=== PATIENT | male | born 1930 | race Caucasian/White ===

== ENCOUNTER 2016-12-07 13:56 | Outpatient (CLI) | payer MEDICARE, OTHER | END 2016-12-07 13:57 | disposition home or self-care (01) | DX: M16.0 Bilateral primary osteoarthritis of hip (principal) ==

== ENCOUNTER 2017-02-22 07:02 | Outpatient (CLI) | payer MEDICARE, OTHER ==
--- NOTE | 2017-02-22 16:38 | CT Report ---
CT HEAD WITHOUT CONTRAST: 02/22/2017 CLINICAL INDICATION: Dementia. TECHNIQUE: Axial CT images of the brain were obtained without intravenous contrast. In accordance with CT protocol optimization, one or more of the following dose reduction techniques w ere utilized for this exam: automated exposure control, adjustment of mA and/or KV based on patient size, or use of iterative reconstructive technique. COMPARISON: 07/12/2009 FINDINGS: The ventricles and sulci demonstrate moderate symmetric enlargement, compatible with atrop hy. The basilar cisterns are patent. Chronic ischemic changes are seen in the periventricular white matter structures. There is no evidence of acute hemorrhage, mass effect, or midline shift. The vi sualized orbital contents and paranasal sinuses are unremarkable. There is an old fracture of the ri t lateral occipital bone. No acute fracture is seen. IMPRESSION: ATROPHY AND CHRONIC ISCHEMIC CHANGES. NO EVIDENCE OF ACUTE HEMORRHAGE OR MASS EFFECT. JOB #: [id number] EXT JOB #:[id number]
== END 2017-02-22 07:03 | disposition home or self-care (01) ==
LOC: DI 07:02
PROVIDERS: ATTEND Internal Medicine
DX: F03.90 Unspecified dementia, unspecified severity, without behavioral disturbance, psychotic disturbance, mood disturbance, and anxiety (principal); R79.89 Other specified abnormal findings of blood chemistry; G31.9 Degenerative disease of nervous system, unspecified; I67.82 Cerebral ischemia
CPT/HCPCS: 36415; 70450; 84403

== ENCOUNTER 2017-02-22 07:38 | Outpatient (CLI) | payer MEDICARE, OTHER | END 2017-02-22 07:39 | disposition home or self-care (01) | LOC: LAB 07:38 | PROVIDERS: ATTEND Internal Medicine | DX: R79.89 Other specified abnormal findings of blood chemistry (principal) | CPT/HCPCS: 36415; 84403 ==

== ENCOUNTER 2017-07-01 14:03 | Outpatient (CLI) | payer MEDICARE, OTHER | END 2017-07-01 14:04 | disposition home or self-care (01) | LOC: SC 14:03 | PROVIDERS: ATTEND Internal Medicine Pulmonary Disease | DX: G47.10 Hypersomnia, unspecified (principal); G31.83 Neurocognitive disorder with Lewy bodies; F02.80 Dementia in other diseases classified elsewhere, unspecified severity, without behavioral disturbance, psychotic disturbance, mood disturbance, and anxiety; R06.83 Snoring | CPT/HCPCS: 99203; G0463; 99212 ==

== ENCOUNTER 2017-08-03 11:33 | Outpatient (CLI) | payer MEDICARE, OTHER ==
--- NOTE | 2017-08-03 14:07 | Ultrasound Report ---
EXAM: AORTIC DOPPLER ULTRASOUND EXAM DATE: 08/03/2017 12:54 PM. CLINICAL HISTORY: ABDOMINAL AORTIC ANEURYSM (AAA) WITHOUT RUPTURE. COMPARISON: None. TECHNIQUE: Real-time sonographic imaging of retroperitoneal vascular structures, including color-flow , Doppler flow and spectral analysis was performed by the putty maker. Multiple medical field representative static images were saved for review. FINDINGS: Aorta: Proximal 2.2 cm Mid 1.7 cm Distal 4.4 x 4.0 cm, previously 4.3 x 4.0 cm Internal soft plaque is visualized. Iliac Vessels: The visualized proximal common iliac arteries are normal in caliber. Right 1.1 cm Left 1.0 cm IMPRESSION: Abdominal aortic aneurysm. No appreciable change in size given differences in technique. [facility] Referring Provider Line: [phone] SITE ID: [id number]
== END 2017-08-03 11:34 | disposition home or self-care (01) ==
LOC: DI 11:33
PROVIDERS: ATTEND Physician Assistant Medical
DX: I71.4 Abdominal aortic aneurysm, without rupture (principal)
CPT/HCPCS: 93978

== ENCOUNTER 2017-09-03 19:29 | Outpatient (CLI) | payer MEDICARE, OTHER | END 2017-09-03 19:30 | disposition home or self-care (01) | LOC: SC 19:29 | PROVIDERS: ATTEND Internal Medicine Pulmonary Disease | DX: G47.33 Obstructive sleep apnea (adult) (pediatric) (principal); G47.61 Periodic limb movement disorder | CPT/HCPCS: 95810 ==

== ENCOUNTER 2017-10-15 14:47 | Outpatient (CLI) | payer MEDICARE, OTHER | END 2017-10-15 14:48 | disposition home or self-care (01) | LOC: SC 14:47 | PROVIDERS: ATTEND Nurse Practitioner Family | DX: G47.33 Obstructive sleep apnea (adult) (pediatric) (principal); G47.61 Periodic limb movement disorder | CPT/HCPCS: 99214; G0463; 99212 ==

== ENCOUNTER 2017-11-24 00:50 | Outpatient (CLI) | payer MEDICARE, OTHER | END 2017-11-24 00:51 | disposition EMS.NT | LOC: EMS 00:50 | PROVIDERS: ATTEND Surgery | DX: Z03.89 Encounter for observation for other suspected diseases and conditions ruled out (principal); W01.0XXA Fall on same level from slipping, tripping and stumbling without subsequent striking against object, initial encounter; Y92.009 Unspecified place in unspecified non-institutional (private) residence as the place of occurrence of the external cause ==

== ENCOUNTER 2018-01-04 11:12 | Emergency (ER) | payer MEDICARE, OTHER ==
[2018-01-04 12:10] LABS: BASOPHILS # (AUTO) 0.1 10^3/uL (0.0-0.1); BASOPHILS % (AUTO) 1.3 %; EOSINOPHILS # (AUTO) 0.3 10^3/uL (0.0-0.7); EOSINOPHILS % (AUTO) 5.1 %; HGB - HEMOGLOBIN 13.9 g/dL (14.0-18.0); LYMPHOCYTES # (AUTO) 1.3 10^3/uL (1.5-3.5); LYMPHOCYTES % (AUTO) 21.3 %; MEAN CORPUSCULAR HEMOGLOBIN 30.7 pg (27.0-31.0); MEAN CORPUSCULAR HGB CONC 33.3 g/dL (32.0-36.0); MEAN CORPUSCULAR VOLUME 92.1 fL (80.0-94.0); MEAN PLATELET VOLUME 7.9 fL (7.4-11.4); MONOCYTES # (AUTO) 0.5 10^3/uL (0.0-1.0); MONOCYTES % (AUTO) 7.8 %; NEUTROPHILS # (AUTO) 3.9 10^3/uL (1.5-6.6); NEUTROPHILS % (AUTO) 64.5 %; PLT - PLATELET COUNT 188 10^3/uL (130-450); RED BLOOD COUNT 4.52 10^6/uL (4.70-6.10); RED CELL DISTRIBUTION WIDTH 14.8 % (12.0-15.0)
[2018-01-04 12:26] LABS: ALBUMIN 3.8 g/dL (3.2-5.5); ALBUMIN/GLOBULIN RATIO 1.2 (1.0-2.2); CALCIUM 8.9 mg/dL (8.5-10.3); CREATININE 1.2 mg/dL (0.6-1.2)
--- NOTE | 2018-01-04 13:10 | ED Physician Documentation ---
PD HPI NVD - Stated complaint Stated Complaint: N/V/D - Chief complaint Chief Complaint: Abd Pain - History obtained from History obtained from: Patient, Family (mother) - History of Present Illness Timing - onset: How many weeks ago (6-8) Timing - duration: Weeks (6-8) Timing - details: Gradual onset Pain level max: 0 Pain level now: 0 Associated symptoms: No: Fever, Abdominal pain, Chest pain, Hematemesis, Melena , Hematochezia, Dysuria, Hematuria Improved by: Vomiting (states worse over the past few days.) Worsened by: Eating - Additonal information Additional information: States that he has vomiting and diarrhea for 6-8 weeks. Has appointment with PCP in 10 days. Has had diarrhea since stopping aricept 1 year ago. States decreased appetite and "can't keep anything down". No blood in stool. Review of Systems Ten Systems: 10 systems reviewed and negative Constitutional: denies: Fever, Chills Ears: denies: Ear pain Nose: denies: Rhinorrhea / runny nose, Congestion Cardiac: denies: Chest pain / pressure Respiratory: denies: Cough GI: denies: Nausea, Vomiting, Diarrhea : denies: Dysuria Skin: denies: Rash Musculoskeletal: denies: Neck pain, Back pain Neurologic: denies: Focal weakness, Numbness, Headache PD PAST MEDICAL HISTORY - Past Medical History Past Medical History: Yes Cardiovascular: Hypertension, Atrial fibrillation - Past Surgical History Past Surgical History: Yes - Present Medications Home Medications: Ambulatory Orders Medication Instructions Recorded Confirmed Betaxolol 0.25% Ophth Drops 1 drop DAILY 02/13/15 02/13/15 [Betoptic S 0.25% Ophth Drops] Hydrochlorothiazide 25 mg PO DAILY 02/13/15 02/13/15 Hydrocodone/Acetaminophen 1 each PO Q6H PRN #15 tablet 02/13/15 [Hydrocodon-Acetaminophen 5-325] Telmisartan [Micardis] 20 mg PO DAILY 02/13/15 02/13/15 Testosterone [Androgel] 5 gm PO DAILY 02/13/15 02/13/15 Ondansetron Odt [Zofran] 4 mg TL Q6H PRN #10 tablet 01/04/18 Promethazine [Phenergan] 25 mg PO Q6H PRN #10 tab 01/04/18 - Allergies Allergies/Adverse Reactions: Allergies Allergy/AdvReac Type Severity Reaction Status Date / Time No Known Drug Allergies Allergy Verified 01/04/18 11:18 - Social History Does the pt smoke?: No Smoking Status: Never smoker Does the pt drink ETOH?: Yes Does the pt have substance abuse?: No PD ED PE NORMAL - Vitals Vital signs reviewed: Yes - General General: Alert and oriented X 3, No acute distress, Well developed/nourished - HEENT HEENT: PERRL, Moist mucous membranes - Neck Neck: Supple, no meningeal sign - Cardiac Cardiac: Strong equal pulses, Other (irregular) - Respiratory Respiratory: Clear bilaterally - Abdomen Abdomen: Soft, Non tender, Non distended - Back Back: No CVA TTP, No spinal TTP - Derm Derm: Warm and dry - Extremities Extremities: No edema - Neuro Neuro: Alert and oriented X 3 - Psych Psych: Normal mood, Normal affect Results - Vitals Vitals: Vital Signs - 24 hr 01/04/18 01/04/18 11:15 16:30 Temperature 36.2 C L Heart Rate 92 74 Respiratory 16 16 Rate Blood Pressure 139/82 H 143/90 H O2 Saturation 98 97 Oxygen O2 Source Room air - Labs Labs: Laboratory Tests 01/04/18 01/04/18 12:07 12:07 WBC 6.0 RBC 4.52 L Hgb 13.9 L Hct 41.6 L MCV 92.1 MCH 30.7 MCHC 33.3 RDW 14.8 Plt Count 188 MPV 7.9 Neut # 3.9 Lymph # 1.3 L [place] # 0.5 Eos # 0.3 Baso # 0.1 Absolute Nucleated RBC 0.00 Nucleated RBC % 0.0 Sodium 139 Potassium 3.8 Chloride 107 Carbon Dioxide 24 Anion Gap 8.0 BUN 29 H Creatinine 1.2 Estimated GFR (MDRD) 57 L Glucose 107 H Calcium 8.9 Total Bilirubin 1.0 AST 22 ALT 14 Alkaline Phosphatase 38 L Total Protein 7.0 Albumin 3.8 Globulin 3.2 Albumin/Globulin Ratio 1.2 Lipase 29 - Rads (name of study) CT abd/pelvis Radiology: Prelim report reviewed, EMP read contemporaneously, See rad report ( No acute inflammatory or obstructive process identified to explain vomiting. 2. Cholelithiasis. 3. Colonic tendinosis without CT evidence for acute diverticulitis. 4. 1.0 x 0.7 cm nonobstructive left intrarenal calculus. 5. Infrarenal abdominal aortic aneurysm, maximum diameter 4.5 cm. 6. Trabeculated urinary bladder wall with multiple small diverticula. ) PD MEDICAL DECISION MAKING - ED course Complexity details: reviewed results, re-evaluated patient, considered differential, d/w patient, d/w family ED course: Patient is an 87-year-old male who presents to the department vomiting for the past several weeks. No acute findings on CT scan to explain his symptoms. No acute findings on laboratory testing. Tolerating p.o. without difficulty after Phenergan in the emergency department. Eating and drinking well. Abdomen is soft, nontender nondistended on serial exam. A abdominal aortic aneurysm is unchanged from prior. No evidence of dissection. We will continue supportive care and have him follow-up with his doctor. Patient did attempt to give a urine sample but missed the cup. He is not having any urinary symptoms and they will follow-up with his doctor if his symptoms do not improve. Patient and family counseled regarding signs and symptoms for which I believe and urgent re-evaluation would be necessary. Patient with good understanding of and agreement to plan and is comfortable going home at this time This document was made in part using voice recognition software. While efforts are made to proofread this document, sound alike and grammatical errors may occur. Departure - Departure Disposition: 01 Home, Self Care Clinical Impression: Vomiting Qualifiers: Vomiting type: unspecified Vomiting Intractability: non-intractable Nausea presence: with nausea Qualified Code(s): R11.2 - Nausea with vomiting, unspecified Condition: Good Instructions: ED Nausea Vomiting Follow-Up: Harmeet Bryan MD [Primary Care Provider] - Within 1 week Prescriptions: Ondansetron Odt [Zofran] 4 mg TL Q6H PRN #10 tablet PRN Reason: Nausea / Vomiting Promethazine [Phenergan] 25 mg PO Q6H PRN #10 tab PRN Reason: Nausea / Vomiting Comments: The cause of your symptoms is unclear today. You should follow-up with your doctor for further testing. Return if you worsen Discharge Date/Time: 01/04/18 17:58
[2018-01-04] MEDS ORDERED: PANTOPRAZOLE 40 MG VIAL IVP STA (13:12)
[2018-01-04] MEDS ORDERED: SODIUM CHLORIDE 0.9% 1,000 ML IV ONE ×2 (13:12→15:01)
[2018-01-04] MEDS ORDERED: ONDANSETRON 4 MG/2 ML VIAL IVP STA (13:12)
[2018-01-04] MEDS ORDERED: IOPAMIDOL-300 100 ML VIAL ONE (15:17)
[2018-01-04] MEDS ORDERED: IOPAMIDOL-300 100 ML VIAL IVP ONE (15:40)
--- NOTE | 2018-01-04 16:17 | CT Preliminary Report ---
Exam: CT ABDOMEN/PELVIS W/ IMPRESSION: 1. No acute inflammatory or obstructive process identified to explain vomiting. 2. Cholelithiasis. 3. Colonic tendinosis without CT evidence for acute diverticulitis. 4. 1.0 x 0.7 cm nonobstructive left intrarenal calculus. 5. Infrarenal abdominal aortic aneurysm, maximum diameter 4.5 cm. 6. Trabeculated urinary bladder wall with multiple small diverticula. [facility] SITE ID: [id number]
--- NOTE | 2018-01-04 16:17 | CT Report ---
EXAM: CT ABDOMEN AND PELVIS EXAM DATE: 01/04/2018 03:41 PM. CLINICAL HISTORY: Vomiting. COMPARISONS: None. TECHNIQUE: Routine helical CT imaging was performed through the abdomen and pelvis. IV contrast: 100 mL Isovue-300. Enteric contrast: No. Reconstructions: Coronal and sagittal. In accordance with CT protocol optimization, one or more of the following dose reduction techniques w ere utilized for this exam: automated exposure control, adjustment of mA and/or KV based on patient s ize, or use of iterative reconstructive technique. FINDINGS: Lung Bases: Minimal atelectasis or scarring along the inferior oblique and left fissures. Liver: Mild diffuse low-attenuation of the hepatic parenchyma relative to the spleen, indicating stea tosis. Tiny calcified granulomata. No focal hepatic lesion. Gallbladder/Bile Ducts: Cholelithiasis. No gallbladder distention or pericholecystic fat stranding to suggest acute cholecystitis. No biliary ductal dilatation. Spleen: Normal. Pancreas: Normal. Adrenal Glands: Normal. Kidneys and Ureters: 1.3 cm cortical cyst in the anterior left midportion. Tiny parenchymal calcifica tion in the lateral left midportion. 2.9 cm parapelvic/cortical cyst in the left lower pole with mickey cent 1.0 x 0.7 cm intrarenal calculus (3/36). No hydronephrosis or hydroureter. Peritoneal Cavity/Bowel: Gas and fluid-containing diverticulum projecting superiorly from the third p ortion of the duodenum. Colonic diverticulosis, most pronounced in the sigmoid colon. Prominent stool within the rectum. No evidence for bowel obstruction or acute inflammatory process. The appendix is normal. No free fluid, pneumoperitoneum, or adenopathy. Pelvic Organs: Trabeculated bladder wall with multiple small diverticula. The visualized reproductive organs are within normal limits. Vasculature: Extensive atherosclerotic calcifications within the aorta and its branches. High-grade g reater than 75% stenosis of the proximal SMA (for example ). Fusiform infrarenal abdominal aortic aneurysm, maximum diameter 4.5 cm (02/07). Bones: Levoscoliosis centered at L2-L3. Multilevel degenerative changes, including advanced degenerat carlos manuel disk disease and facet arthropathy at L3-L4 through L5-S1, with associated grade 1 anterolisthesi s at L3-L4. 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 No acute bony abnormality. Other: None. IMPRESSION: 1. No acute inflammatory or obstructive process identified to explain vomiting. 2. Cholelithiasis. 3. Colonic tendinosis without CT evidence for acute diverticulitis. 4. 1.0 x 0.7 cm nonobstructive left intrarenal calculus. 5. Infrarenal abdominal aortic aneurysm, maximum diameter 4.5 cm. 6. Trabeculated urinary bladder wall with multiple small diverticula. [facility] Referring Provider Line: [phone] SITE ID: [id number]
[2018-01-04] MEDS ORDERED: PROMETHAZINE INJ 12.5 MG in SODIUM CHLORIDE 0.9% 50 ML IV STA (16:19)
[2018-01-04] MEDS ORDERED: PROMETHAZINE 25 MG/1 ML VIAL IM STA (16:34)
[2018-01-04 16:51] VITALS: BP 143/90
== END 2018-01-04 17:58 | disposition home or self-care (01) ==
LOC: ED 11:12
DX: R11.2 Nausea with vomiting, unspecified (principal); I10 Essential (primary) hypertension
CPT/HCPCS: 36415; 74177; 80053; 83690; 85025; 96361; 96372; 96374; 99283; Q9967

== ENCOUNTER 2018-02-26 16:02 | Outpatient (CLI) | payer MEDICARE, OTHER | END 2018-02-26 16:03 | disposition home or self-care (01) | LOC: SC 16:02 | PROVIDERS: ATTEND Nurse Practitioner Family | DX: G47.33 Obstructive sleep apnea (adult) (pediatric) (principal) | CPT/HCPCS: 99214; G0463; 99212 ==

== ENCOUNTER 2018-04-03 03:50 | Emergency (ER) | payer MEDICARE, OTHER ==
[2018-04-03] MEDS ORDERED: LIDOCAINE PATCH 5% TOP STA (04:09)
--- NOTE | 2018-04-03 05:27 | XRAY Report ---
Procedure Date: 04/03/2018 Accession Number: [id number] / [id number] Procedure: XR - Ribs w/PA Chest RT CPT Code: FULL RESULT: EXAM: RIGHT RIB RADIOGRAPHY EXAM DATE: 04/03/2018 05:14 AM. CLINICAL HISTORY: Fall, rib pain. COMPARISON: XR CHEST PA AND LAT 03/04/2012. TECHNIQUE: 1 view of the chest and 6 views of the ribs. FINDINGS: Bones: Fractures of the right ninth and 10th ribs. Lungs: Large lung volumes. No alveolar consolidation or pleural effusion seen. No pneumothorax identified. Mediastinum: Within exam limitations, cardiomediastinal silhouette is unremarkable. Other: None. IMPRESSION: 1. Fractures of the right ninth and 10th ribs. [facility]
--- NOTE | 2018-04-03 05:52 | ED Physician Documentation ---
PD HPI TRUNK INJURY - Stated complaint Stated Complaint: BACK PAIN/INJURY - Chief complaint Chief Complaint: Trauma Ch/Bk - History obtained from History obtained from: Patient, Family - History of Present Illness Location: Right chest Type of injury: Fall Timing - onset: How many days ago (3) Timing - details: Abrupt onset, Still present Quality: Pain, Sharp Worsened by: Moving, Palpating Recently seen: Not recently seen - Additional information Additional information: Patient is an 87 year old male who is presenting to the emergency department for rib pain. Patient fell about 3 days ago. Patient's assumed that he had bruised or broke his ribs but knew there was not much that could be done so she did not bring the patient in for evaluation. The states that recently the patient has been coughing because of the smoke in the air and the pain seemed much worse so she brought him in for evaluation. Review of Systems Ten Systems: 10 systems reviewed and negative Constitutional: denies: Fever, Chills Cardiac: reports: Chest pain / pressure Respiratory: reports: Cough. denies: Wheezing PD PAST MEDICAL HISTORY - Past Medical History Past Medical History: Yes Cardiovascular: Hypertension, Atrial fibrillation Respiratory: None Neuro: Dementia, Peripheral neuropathy Endocrine/Autoimmune: None GI: None : None HEENT: Chronic hearing loss Psych: None Musculoskeletal: None Derm: None - Past Surgical History Past Surgical History: Yes - Present Medications Home Medications: Ambulatory Orders Medication Instructions Recorded Confirmed Betaxolol 0.25% Ophth Drops 1 drop DAILY 02/13/15 02/13/15 [Betoptic S 0.25% Ophth Drops] Hydrochlorothiazide 25 mg PO DAILY 02/13/15 02/13/15 Hydrocodone/Acetaminophen 1 each PO Q6H PRN #15 tablet 02/13/15 [Hydrocodon-Acetaminophen 5-325] Telmisartan [Micardis] 20 mg PO DAILY 02/13/15 02/13/15 Testosterone [Androgel] 5 gm PO DAILY 02/13/15 02/13/15 Ondansetron Odt [Zofran] 4 mg TL Q6H PRN #10 tablet 01/04/18 Promethazine [Phenergan] 25 mg PO Q6H PRN #10 tab 01/04/18 Lidocaine Patch 5% [Lidoderm Patch] 1 each TOP DAILY #10 patch 04/03/18 - Allergies Allergies/Adverse Reactions: Allergies Allergy/AdvReac Type Severity Reaction Status Date / Time No Known Drug Allergies Allergy Verified 04/03/18 03:57 - Social History Does the pt smoke?: No Smoking Status: Never smoker Does the pt drink ETOH?: Yes Does the pt have substance abuse?: No - Immunizations Immunizations are current?: Yes - POLST Patient has POLST: No PD ED PE NORMAL - Vitals Vital signs reviewed: Yes - General General: No acute distress - HEENT HEENT: Atraumatic - Cardiac Cardiac: RRR - Respiratory Respiratory: No respiratory distress, Clear bilaterally - Abdomen Abdomen: Soft, Non tender - Derm Derm: Normal color, Warm and dry - Extremities Extremities: No deformity PD ED PE EXPANDED - Cardiac Cardiac: Chest wall TTP (tenderness to palpation of right lower ribs) Results - Vitals Vitals: Vital Signs - 24 hr 04/03/18 04/03/18 03:50 06:08 Temperature 36.9 C 36.6 C Heart Rate 82 87 Respiratory 18 14 Rate Blood Pressure 139/74 H 170/92 H O2 Saturation 97 100 Oxygen O2 Source Room air - Rads (name of study) right side rib series Radiology: Final report received (fractures of ribs 9-19) PD MEDICAL DECISION MAKING - ED course Complexity details: reviewed old records, reviewed results, re-evaluated patient , considered differential, d/w patient, d/w family ED course: patient was seen and examined at bedside. patient was treated with a lidoderm patch and imaging was ordered. when patient returned from imaging the results were reviewed. patient was found to have two rib fractures. Patient's pain was well controlled with the lidoderm. patient required no further work up and was stable for discharge with outpatient follow up. - Sepsis Event Vital Signs: Vital Signs - 24 hr 04/03/18 04/03/18 03:50 06:08 Temperature 36.9 C 36.6 C Heart Rate 82 87 Respiratory 18 14 Rate Blood Pressure 139/74 H 170/92 H O2 Saturation 97 100 Oxygen O2 Source Room air Departure - Departure Disposition: 01 Home, Self Care Clinical Impression: Rib fracture Condition: Good Instructions: ED Fx Rib Follow-Up: Harmeet Bryan MD [Primary Care Provider] - Prescriptions: Lidocaine Patch 5% [Lidoderm Patch] 1 each TOP DAILY #10 patch Comments: Your symptoms today are being caused by a rib fracture. You should ice the region that is painful. You can take motrin or tylenol as needed for pain. You can also apply lidoderm patches. It is important that you take deep breaths so that you don't develop atelectasis or pneumonia. You may return to the emergency department at any time for new, worsening or uncontrollable symptoms. Discharge Date/Time: 04/03/18 06:18
[2018-04-03 06:13] VITALS: BP 170/92
== END 2018-04-03 06:18 | disposition home or self-care (01) ==
LOC: ED 03:50
DX: S22.41XA Multiple fractures of ribs, right side, initial encounter for closed fracture (principal); W18.30XA Fall on same level, unspecified, initial encounter; I10 Essential (primary) hypertension; Y92.009 Unspecified place in unspecified non-institutional (private) residence as the place of occurrence of the external cause
CPT/HCPCS: 71101; 99283; A9270

== ENCOUNTER 2018-04-23 16:07 | Outpatient (CLI) | payer MEDICARE, OTHER ==
--- NOTE | 2018-04-23 17:22 | CONSULTATION NOTE ---
Palliative Care Consultation - Referral Referring Provider: Dr Harmeet Bryan Time of Visit: 04/23/2018. 10:10 - 11:30 Referral setting: Home (Seen in home setting due to taxing and considerable effort required to leave the home secondary to limited mobility and dementia.) Referral Reason: Dementia, goals of care - Information Sources Records reviewed: Previous records reviewed History/Review of Systems obtained from: Patient, Family Exam limitations: Clinical condition (memory deficits; dementia) - History of Present Illness Brief History of Present Illness: Thank you, Dr. Bryan, for asking the palliative care consult service to be involved in the care of your patient. I am asked to provide support regarding his dementia, significant gait instability/GLFs due to distal sensory polyneuropathy, and goals of care. -87 year old gentleman with normal pressure hydrocephalus dementia and history of frequent falls, living at home with his . 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 -Patient was referred to palliative care because the patient and his spouse both wish for the patient to remain in his home, but due to increasingly frequent falls, the spouse felt she was unable to care for him at home. -However, they have very recently engaged a part-time caregiver whom they are very happy with. -The spouse, Grisel, a nurse for 63 years and who has a PhD, carefully vetted numerous candidates and hired a male caregiver for 3 half-days per week, with the possibility of a 4th. -Grisel says this has made all the difference in the world, because now she can make appointments, go out to lunch, leave the house and not worry about receiving an emergency phone call, which is what had been occurring in the past. -The patient's most recent ER visit was 04/03/18 for a ground-level fall a few days previously, which had fractured 2 ribs. -Patient reports that the rib pain is resolving and he is not affected by a loss of function or pain in the ribs and has stopped using the lidocaine patches. -His previous ER visit was 01/04/18 for nausea and vomiting. The cause was not found, it resolved, and he was discharged home. -He is followed by Dr Valentin Lux, urologist at [facility], once a year. -He is also followed by Dr Kartik Walter, cardiovascular surgeon, for his AAA. He sees him every other year. The AAA has not grown in size for years. -Per the spouse, he previously was diagnosed with Lewy Body dementia which didn't quite fit. He saw Dr Neff who runs the memory unit at , an expert in adult onset hydrocephalus, and he diagnosed the patient with normal pressure hydrocephalus dementia. Medical/Surgical History - Past Medical History Cardiovascular: reports: Hypertension, High cholesterol, Atrial fibrillation, Other (AAA - infrarenal 4.5x6cm, not increasing in size) Respiratory: reports: COPD, Other (obstructive chronic bronchitis). denies: CPAP use (has mild MAX, refuses to use CPAP) Neuro: Dementia, Peripheral neuropathy (idiopathic progressive distal sensory neuropathy) Neuro: reports: Other (trigeminal neuralgia) Endocrine/Autoimmune: reports: None GI: reports: None : reports: None, Other (testicular hypofunction) HEENT: reports: Chronic hearing loss Psych: reports: None Musculoskeletal: reports: None, Chronic back pain (lumbago), Other (carpal tunnel syndrome) Derm: reports: None - Past Surgical History General: reports: Other (Inguinal hernia repair) Ortho: reports: Knee replacement (Left knee), Shoulder arthroplasty (Left rotator cuff repair) HEENT: reports: Cataracts - Substance History Use: Uses substance without health or social issues: Alcohol (History of alcohol abuse. Currently drinks 5 oz of gin daily.) Social History - Living Situation Living arrangement: At home Living Situation: With spouse/s.o. Support System: This is the patient's second marriage. His first marriage was 40+ years. He and his current , Grisel, have been together 20 years, 18 years. 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 He has two adult children, both adopted. He had a biological child who in infancy. His daughter, Della, lives in [place], is to [place] and they have two adopted children. They seem to be close to his daughter and her family. His son lives in [place], doesn't have children, and appears not to be close to the patient. Della, the patient's daughter, is a PhD nurse with a busy career and she travels extensively. But she visits her father and stepmother every other month for several days to "spell" Grisel, who takes Saturday and Saturday off for herself. Grisel, the patient's spouse, is also a PhD nurse, retired after 63 years. She is extremely organized, for instance, having a copy of all the health- related documents ready and waiting for my visit. They have just engaged a caregiver, Ap Major, who will be there 3 half-days per week, plus a 4th day if needed. Family History - Family History Family History Comment/Other: Family history non-contributory. Medications/Allergies - Medications Home Medications: Ambulatory Orders Medication Instructions Recorded Confirmed Telmisartan [Micardis] 40 mg PO DAILY 02/13/15 04/23/18 Testosterone [Androgel] 5 gm PO DAILY 02/13/15 04/23/18 Aspirin 81 mg PO 04/23/18 Cholecalciferol (Vitamin D3) 2,000 unit PO 04/23/18 [Vitamin D] Fluticasone/Salmeterol [Advair Hfa 1 puffs INH DAILY 04/23/18 04/23/18 115-21 Mcg Inhaler] Gabapentin 300 mg PO TID 04/23/18 04/23/18 Glucosamine HCl 1 tab PO DAILY 04/23/18 04/23/18 Ipratropium/Albuterol [Combivent spray INH DAILY PRN 04/23/18 Respimat] Ketoconazole 1 ea TOP .2-3X/WEEK PRN 04/23/18 04/23/18 Lactobacillus Acidophilus 1 cap PO BID 04/23/18 04/23/18 [Probiotic Acidophilus] Latanoprost/Pf [Latanoprost 0.005% 1 drops EACHEYE DAILY 04/23/18 04/23/18 Eye Drop] Lutein 10 mg PO DAILY 04/23/18 04/23/18 Memory Builder 1 tab PO DAILY 04/23/18 Mirabegron [Myrbetriq] 50 mg PO DAILY 04/23/18 04/23/18 Multivit-Min/FA/Lycopen/Lutein 1 tab PO DAILY 04/23/18 04/23/18 [Centrum Silver Men Tablet] Naproxen Sodium [Aleve] 220 mg PO BID PRN 04/23/18 04/23/18 Vitamin B Complex 1 tab PO DAILY 04/23/18 04/23/18 Vitamin B1 1 tab PO DAILY 04/23/18 - Allergies Allergies/Adverse Reactions: Allergies Allergy/AdvReac Type Severity Reaction Status Date / Time No Known Drug Allergies Allergy Verified 04/03/18 03:57 Review of Systems - Constitutional Constitutional: reports: Weight loss (165 lbs at last PCP visit, down from 175 lbs over a 6-12 month period). denies: Poor appetite - Eyes Eyes: reports: Vision loss, Corrective lenses - Respiratory Respiratory: reports: Cough (chronic), Wheezing (chronic) - Genitourinary Genitourinary: reports: Incontinence (Denies incontinence of bladder since using mirabegron. Occasional incontinence of bowel.) - Musculoskeletal Musculoskeletal: reports: Stiffness, Limited range of motion (L shoulder), Joint pain (L shoulder pain, uses cannabis salve), Assistive devices (Walker. Also has a "rollinator" which is a kind of wheelchair that can switch into a type of walker and is transportable. Also has a temperpedic bed with indivicual HOB elevation.), Transfer issues (Occasional difficulty getting out of low chairs. History of frequent falls), Other (Denies pain, tingling, numbness in lower extremities. Has 2 R rib fractures which are resolving and he denies pain.) - Neurological Neurological: reports: Memory problems, Pre-existing deficit, Other (Is not able to tell where his feet are; may be a proprioceptive deficit.) Physical Exam - Vital Signs Temperature: 96.7 F Pulse Rate: 102 O2 Saturation: 95 (room air) Blood Pressure: 106/66 (wrist cuff) - Physical Exam General Appearance: positive: No acute distress, Alert Eyes Bilateral: positive: EOMI, No lid inflammation, Conjunctivae nml, No scleral icterus ENT: positive: No signs of dehydration Neck: positive: No JVD, Trachea midline Cardiovascular: positive: Regular rate & rhythm, No murmur, No gallop Respiratory: positive: Chest non-tender, No respiratory distress, Diminished throughout. negative: Wheezes, Rales, Rhonchi Abdomen: positive: Non-tender, Soft, Nml bowel sounds. negative: Guarding Skin: positive: No symptoms Extremities: positive: Pedal edema (minimal) Neurologic/Psychiatric: positive: Mood/affect nml, Disoriented to time Palliative Care - POLST Patient has POLST: Yes POLST Status: DNR, Selective Treatment Pain: No pain Feelings of wellbeing/Perceived Quality of Life: Fair Performance Status: Patient is still ambulatory with walker but has idiopathic distal sensory neuropathy (he denies numbness, tingling, pain in lower extremities), or a proprioceptive deficit where he doesn't know where his feet are, and so has a history of frequent falls. His house has been designed and upgraded (hand railings, ramps, shower alterations) so he and his can remain at home through end of life. - Palliative Care Discussion: -The patient and his spouse lived on a boat from [id number] and traveled 13,500 [address] miles throughout the [facility]. -The patient says his goal is to once again own a boat. Grisel, his spouse, remarks out loud, wondering who is going to manage it -- she's done with that. -His previous POLST dated from 2011 and was DNR and comfort care. The front page was missing, so we filled out a new one. -This time he opted for selective treatment because he is willing to go to the hospital for treatment of reversible conditions. -Grisel seemed a little surprised but did not object, and said she will made sure a copy gets to Dr Bryan. She kept the original for their refrigerator. -Palliative care was originally referred by Dr Bryan because Grisel was feeling that she could no longer provide the care to keep the patient in their home, which they have carefully and thoughtfully designed and altered so they could live there through end of life, including any eventuality of disablement. -But since then, they hired their new caregiver, Ap Major, who started last week. -He will be there for 3 half-days per week, and 4 if needed. -Bringing a caregiver on board has made all the difference for Grisel, and she is now able to run errands and leave the house when needed without fear of getting an emergency phone call as she has in the past (the patient has [employer]). -She also is able to get away for two days every other month when the patient's daughter comes to stay. Also the granddaughter tries to come every month and help out. -Grisel also notes that she is getting better at asking for help from others. -They also have long-term care insurance through his [employer] life insurance and they are in the process of signing up for it. -Once it's in place, it will help cover caregiving. Grisel notes that they also have the financial means to take care of it too. -The patient currently has an adequate level of understanding of his health condition and retains some decision making capabilities. He independently decided to change his POLST from comfort care to selective treatment. 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 -Apparently he had an exceptionally high IQ (as revealed on a test where the highest score was 70 and he scored 69.5. He was also a voracious reader earlier in his life. -His executive functions still function, for instance he successfully uses the computer and still reads. -But there are problems, such as inappropriate ordering online, eg, he just spent $1000 on the [employer] site, which Grisel will return. Also he has been on inappropriate adult dating sites. -Grisel checks all their online accounts every other day. -He does continue to drink alcohol daily. At one point, he was pouring it himself without appropriate oversight and used up a liter in just a few days. -Now Grisel measures out 5 oz of gin into a flask daily and that is what he is limited to. -Patient and Grisel have traveled extensively and also have future travel plans. They went to [place] in 2017, to [place] twice in 2018, and plan to go back east in 2019. They mainly go by airplane, although are considering going cross-country by train next year. -When I asked the patient if traveling was fatiguing for him, he replied that he just goes to sleep when he gets tired. -Grisel makes her own cannabis salve that she is currently using on the patient's L shoulder pain, and it provides relief. Impression and Recommendations - Palliative Care Impression: -87 year old gentleman with normal pressure hydrocephalus dementia and history of frequent falls, living at home with his . He has a complex medical history including COPD, AAA (stable in size), h/o frequent falls secondary to idiopathic progressive neuropathy; HTN; and h/o alcohol abuse. He was referred to palliative care because the patient and his spouse both wish for the patient to remain in his home, but due to increasingly frequent falls, the spouse felt she was unable to care for him at home. After a very careful vetting process, they just hired Ap Major, a part-time caregiver who lives very close by and whom they are very happy with. This has relieved the pressure on the spouse and she feels the set up is working extremely well. She does want to continue with palliative care's oversight and support, and is supportive of eventual transition to hospice when appropriate. Recommendations/Counseling Done: Dementia, normal pressure hydrocephalus: Stable. Has adequate decision making capacity currently, for example to choose to hospitalization over comfort care, and enough executive function to read, and work on a computer. However, he also has lack of judgment, for instance, ordering $1000 worth of [employer] online, going on adult dating sites. His closely monitors the accounts every other day. A part-time caregiver, Ap Major, has started working 3-4 days/week and this greatly relieves the caregiver burden and lowers risk of caregiver burnout. The paperwork is in process to use the patient's [employer] life insurance to cover long- term care needs, which includes in-home caregiving, and will also apparently pay for Grisel's caregiving. Two R ribs fractured: Resolving, denies pain. The fall/fracture occurred in late March, lidocaine patches relieved the acute pain. h/o frequent falls: Patient has a proprioceptive deficit that means he is unaware of where his feet are. House has been adapted (handrails, ramps, etc) for halfway and minimizing impact of disability. L shoulder pain: Controlled with cannabis salve that spouse makes. Advanced care planning: Their overal goal is that they can both live at home through end of life. They have upgraded their home with this goal in mind (all one story, ramp in garage, handrails, shower altered, etc). The patient's previous POLST from 2011 was DNR and comfort care. Patient has decided that he is supportive of transfer to hospital for reversible conditions. We created a new POLST (they were missing the first page of the 2012 POLST) for DNR and selective treatment. Also the patient is willing to have a trial period of tube feeding. Spouse is aware of these changes and voices no objections. Spouse feels the largest benefit for having palliative care on service is having someone she can call for questions or concerns. Follow up next month. Time Spent: 100 minutes were spent with more than 50% of the time spent on counseling, education, and coordination of care.
== END 2018-04-23 16:08 | disposition home or self-care (01) ==
LOC: PC 16:07
PROVIDERS: ATTEND Nurse Practitioner
DX: Z51.5 Encounter for palliative care (principal); F03.90 Unspecified dementia, unspecified severity, without behavioral disturbance, psychotic disturbance, mood disturbance, and anxiety; G91.2 (Idiopathic) normal pressure hydrocephalus; Z91.81 History of falling; G60.3 Idiopathic progressive neuropathy; J44.9 Chronic obstructive pulmonary disease, unspecified; I71.4 Abdominal aortic aneurysm, without rupture; Z66 Do not resuscitate
CPT/HCPCS: 99345

== ENCOUNTER 2018-06-18 15:12 | Outpatient (CLI) | payer MEDICARE, OTHER ==
--- NOTE | 2018-06-18 15:58 | CONSULTATION NOTE ---
Palliative Care Follow Up - Referral Referring Provider: Dr Bryan Time of Visit: 06/18/2018. 10:05 - 10:50 Referral setting: Home (Seen in home setting due to taxing and considerable effort required to leave the home secondary to limited mobility and dementia.) Referral Reason: Advancing dementia and debility - Information Sources Records reviewed: Previous records reviewed History/Review of Systems obtained from: Patient, Family Exam limitations: Clinical condition (memory deficits; dementia) - History of Present Illness Update Brief HPI Update: -87 year old gentleman with normal pressure hydrocephalus dementia and history of frequent falls, living at home with his . 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 -Patient was originally referred to palliative care because their goal was for the the patient to remain in his home, but his , Grisel, who is a retired nurse, felt she would be unable to care for her due to his increasingly frequent falls. -However, they had hired a part-time caregiver, Ap, who comes 2-3 days per week. They have [id number] insurance which is helping them cover this expense. -Having regular caregiving support has made all the difference, and Grisel's tolerance level has significantly improved. -Grisel feels that things are going much better. -The patient's functionality continues to decline: increased confusion, increasing episodes of incontinence of bowel, sleeping 16-18 hours per day, prowl the house at night, forgets appointments and what day of the week it is, or what time of day it is. -She is not able to ever leave him alone, but since Ap the caregiver is here 3 days per week, that is not a problem. -She will travel to [place] in August and has organized coverage for him while she'll be away. -There will be a big 88th birthday celebration for him in July, with about 42 people coming to the celebration, to be held at the [facility] -Patient was sleeping in bed when I arrived. He roused easily enough and responded to questions and comments but did remain drowsy throughout the assessment. -He denies discomfort or pain. His pedal edema is worsening, +2 on left foot, a bit less on right. He also has a chronic cough which he's had for years. Lungs sound clear on auscultation. Grisel does not want to start him on diuretics. They do have compression stocking with zippers, and his legs are elevated frequently since he sleeps so much. -Head of bed is elevated about 3" which helps him sleep. -Grisel notes difficulty with swallowing pills, it takes up to 20 minutes. They have seen a speech pathologist. -The pain in his fractured ribs from a fall a few months ago has resolved. -Patient saw his sheep and wheat farmer last week, Grisel reports his glaucoma pressure is good. -Despite excessive sleeping, patient is still occasionally getting out of the house: a haircut with Ap, or out to the [employer]. They will attend a lunch engagement tomorrow, for retired officers. Social History - Living Situation Living arrangement: At home Living Situation: With spouse/s.o. Support System: This is the patient's second marriage. His first marriage was 40+ years. He and his current , Grisel, have been together 20 years, 18 years. He is a retired officer. Della, the patient's daughter, is a PhD nurse. Grisel, the patient's spouse, is also a PhD nurse, retired after 63 years. Ap Major the caregiver comes , Sat, Saturday from 4 to 7-7 hours daily. They have [facility] care insurance that covers about $1300/month for this. Medications/Allergies - Medications Home Medications: Ambulatory Orders Medication Instructions Recorded Confirmed Telmisartan [Micardis] 40 mg PO DAILY 02/13/15 06/18/18 Testosterone [Androgel] 5 gm PO DAILY 02/13/15 06/18/18 Cholecalciferol (Vitamin D3) 2,000 unit PO 04/23/18 [Vitamin D] Fluticasone/Salmeterol [Advair Hfa 1 puffs INH DAILY 04/23/18 06/18/18 115-21 Mcg Inhaler] Gabapentin 300 mg PO TID 04/23/18 06/18/18 Glucosamine HCl 1 tab PO DAILY 04/23/18 06/18/18 Ipratropium/Albuterol [Combivent spray INH DAILY PRN 04/23/18 Respimat] Ketoconazole 1 ea TOP .2-3X/WEEK PRN 04/23/18 06/18/18 Lactobacillus Acidophilus 1 cap PO BID 04/23/18 06/18/18 [Probiotic Acidophilus] Latanoprost/Pf [Latanoprost 0.005% 1 drops EACHEYE DAILY 04/23/18 06/18/18 Eye Drop] Memory Builder 1 tab PO DAILY 04/23/18 06/18/18 Mirabegron [Myrbetriq] 50 mg PO DAILY 04/23/18 06/18/18 Multivit-Min/FA/Lycopen/Lutein 1 tab PO DAILY 04/23/18 06/18/18 [Centrum Silver Men Tablet] Vitamin B Complex 1 tab PO DAILY 04/23/18 06/18/18 Vitamin B1 1 tab PO DAILY 04/23/18 06/18/18 Acetaminophen [Tylenol 8 Hour] 325 mg PO BID PRN 06/18/18 06/18/18 Vit A/Vit C/Vit E/Zinc/Copper 1 cap PO DAILY 06/18/18 06/18/18 [Preservision Areds Softgel] - Allergies Allergies/Adverse Reactions: Allergies Allergy/AdvReac Type Severity Reaction Status Date / Time No Known Drug Allergies Allergy Verified 04/03/18 03:57 Review of Systems - Constitutional Constitutional: reports: Fatigue, Weight stable (168 lbs. Last visit it was 165 lbs, down fro m175 lbs over a 6-12 month period.). denies: Poor appetite - Cardiovascular Cardiovascular: reports: Edema. denies: Chest pain - Respiratory Respiratory: reports: Cough (chronic), Wheezing (chronic) - Genitourinary Genitourinary: reports: Incontinence (of bowel, worsening), Other (no retention or urinary incontinence since on mirabegron) - Musculoskeletal Musculoskeletal: reports: Stiffness, Limited range of motion (L shoulder), Joint pain (L shoulder), Assistive devices (walker and a "rollinator"), Transfer issues (occasional), Other (history of frequent falls) - Neurological Neurological: reports: Memory problems, Other (proprioceptive deficit, can't tell where his feet are) - Other Findings Other Findings: limited ROS Physical Exam - Vital Signs Temperature: 96.5 F Pulse Rate: 100 O2 Saturation: 95 Blood Pressure: 100/57 (after HTN med ) - Physical Exam General Appearance: positive: No acute distress, Other (drowsy, just woke up) Eyes Bilateral: positive: No lid inflammation, Conjunctivae nml, No scleral icterus ENT: positive: No signs of dehydration Neck: positive: Trachea midline Cardiovascular: positive: No murmur, No gallop, Tachycardia Respiratory: positive: Chest non-tender, No respiratory distress, Breath sounds nml Skin: positive: No symptoms Extremities: positive: Pedal edema (Left 2+ pitting. R is less edemic. Does elevate legs often) Neurologic/Psychiatric: positive: Mood/affect nml, Disoriented to time Palliative Care - POLST Patient has POLST: Yes POLST Status: DNR, Selective Treatment Pain: No pain Tiredness/Fatigue: Moderate (4-6) Dyspnea: None Sleep: Other (excessive sleeping - 14-18 hours per day) Constipation: No - Palliative Care Discussion: She does say that she sees him "shutting down the slats of his life one by one" -- sleeping all day at times, not getting dressed, becomes mixed up on what tmie of day (thinking it's breakfast when it's dinner time. He is also aware of when he is confused, and adds to his frustration. Grisel inquired about how eligibility for Hospice is determined, and I provided education about progression of dementia, weight/malnutrition, increased ED visits/infections, permanent changes in condition (bedridden, non-am bulatory). She understands. She agrees to monitor his weight and the progression of the dementia. Grisel does have very good social network and feels she is doing well with all the support of friends and family, plus Ap the caregiver. She sees a very good counselor every 3 months. She has close friends nearby as well as living far away. She is planning a trip to see one friend in [place] in August. They also have a very supportive family. The patient's daugther, Della, who lives in [place] will be here for a visit in July, and we scheduled the next palliative care visit so she could be present. Grisel finds palliative care valuable to have someone to go to for questions and concerns. Impression and Recommendations - Palliative Care Impression: -87 year old gentleman with normal pressure hydrocephalus dementia and history of frequent falls, lives at home with his and also has ongoing caregiver support which has greatly improved the stress of caregiving. Their goal is for the patient to remain at home. Patient continues to slowly decline; he is sleeping more and has increased incidences of incontinence of bowels. Palliative Care will continue oversight and support, with eventual transition to hospice when appropriate. Recommendations/Counseling Done: Dementia, normal pressure hydrocephalus: Slow decline, but stable. Spouse has added software so that he can't go online and order excessive, irrational items ($1000 from one site, adult dating sites, etc). Incontinence of bowels: Worsening, but patient is in denial and resists wearing Depends. Caregiver has found a solution: "[employer]" Depends with regular briefs over the Depends. The patient is accepting this. Debility: Worsening. His sleeping has increased to 14-18 hours/day. He still sees a personal lines sales executive who comes to the home, but decreased it from weekly to every two weeks. Two R ribs fractured: Resolved. L shoulder pain: Tylenol 8-hour twice daily. Spouse continues to rub with homemade cannabis salve. Insomnia: He has some wandering at night. Spouse notes that valerian with hops (tablets) helps him sleep. She will also be making a tincture of this. Advanced care planning: POLST is DNR and selective treatment. Goal of care is to remain in their own home. They have designed and upgraded their home to f acilitate this. Their long-term insurance is subsidizing the part-time caregiver, and he is working out very well for their needs. Spouse wants to continue palliative care for support and resources. Follow up visit: SaturdayJul 25 10:30am Time Spent: 45 minutes were spent with more than 50% of the time spent on counseling, education, anticipatory guidance about progression of dementia, and coordination of care.
== END 2018-06-18 15:13 | disposition home or self-care (01) ==
LOC: PC 15:12
PROVIDERS: ATTEND Nurse Practitioner
DX: Z51.5 Encounter for palliative care (principal); F03.90 Unspecified dementia, unspecified severity, without behavioral disturbance, psychotic disturbance, mood disturbance, and anxiety; G91.2 (Idiopathic) normal pressure hydrocephalus; R15.9 Full incontinence of feces; M25.512 Pain in left shoulder; G47.00 Insomnia, unspecified; J44.9 Chronic obstructive pulmonary disease, unspecified; G60.8 Other hereditary and idiopathic neuropathies; I10 Essential (primary) hypertension; Z66 Do not resuscitate; Z91.81 History of falling; Z79.899 Other long term (current) drug therapy; Z91.83 Wandering in diseases classified elsewhere
CPT/HCPCS: 99349